=== PATIENT | male | born 2000 | race Caucasian/White ===

== ENCOUNTER 2024-12-08 18:26 | Emergency (ER) | payer OTHER, SELFPAY ==
[2024-12-08 18:32] VITALS: BP 142/71; PULSE 96; RESP 16; TEMP 36.8; O2SAT 95
--- OUTSIDE RECORDS SUMMARY | 2024-12-08 18:33 | XMS_ITS | Clinical Summary ---
Author Organization [employer] [facility] Address [address] [place] [address] Care Team Providers Care Literature Teacher Name Role Phone Silvia Phi Richie VILLAGOMEZ Primary Care Provider [phone] Allergies No known active allergies Medications No known medications Active Problems No known active problems Family History Medical History Relation Name Comments Healthy Brother Hypertension Father Unknown Maternal Grandfather Cancer Maternal Grandmother Healthy Mother Other Paternal Grandfather ALS No Known Problems Paternal Grandmother Relation Name Status Comments Brother Alive Father Alive Maternal Grandfather Alive Maternal Grandmother Alive Mother Alive Paternal Grandfather Paternal Grandmother Alive Sister none Social History Tobacco Use Types Packs/Day Years Used Date Smoking Tobacco: Never Smokeless Tobacco: Never Tobacco Cessation:Counseling Given: Yes Alcohol Use Standard Drinks/Week Comments Yes 0 (1 standard drink = 0.6 oz pur e alcohol) Sex and Gender Information Value Date Recorded Sex Assigned at Not on file Legal Sex Male 11:25 AM CDT Gender Identity Not on file Sexual Orientation Not on file Last Filed Vital Signs Vital Sign Reading Time Taken Comments Blood Pressure 130/60 10/21/2020 3:50 PM CDT Pulse 69 10/21/2020 3:50 PM CDT Temperature 36.8 C (98.2 F) 01/19/2020 2:14 PM [employer] Respiratory Rate 18 01/02/2020 11:07 AM CDT Oxygen Saturation 99% 10/21/2020 3:50 PM CDT Inhaled Oxygen Concentration - - Weight 86.9 kg (191 lb 9.6 oz) 10/21/2020 3:50 P M CDT Height 175.3 cm (5' 9 ) 10/21/2020 3:50 PM CDT Body Mass Index 28.29 10/21/2020 3:50 PM CDT Plan of Treatment Health Maintenance Due Date Last Done Comments HPV VACCINES (1 - Male 3-dose series) 2013 DTAP/TDAP/TD VACCINES (1 - Tdap) 2017 HEPATITIS B VACCINES (1 of 3 - 19+ 3-dose series) 07/10 INFLUENZA VACCINE (#1) 2024 Insurance Care Teams Literature Teacher Relationship Specialty Start Date End Date Phi Vega DO [address] [place] [id number] PCP - General Family Practice 01/18/22
--- OUTSIDE RECORDS SUMMARY | 2024-12-08 18:33 | XMS_ITS | Data Portability ---
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 Use cool compress, may use OTC hydorcortisone sparingly on face, may use benadryl as needed. tolerated IM injection well. F/U PRN with walk-in clinic for sx that worsen or do not improve. Patient verbalizes understanding and agreement with this plan of care. Will call with any questions or concerns. [email or web address] Not available 08/20/2022 15:46:11 10/31/2022 10/31/2022 normal penis and testicles on exam. no scrotal mass that i could identify on exam. Not available 10/31/2022 09:04:11 04/24/2024 04/24/2024 he has been filtering the urine and there is no sediment passed. he has been drinking 3 quarts of water per day. that is routine for him. sometimes a little more. he takes a pre workout supplement and no other supplemnt. [email or web address] Not available 04/24/2024 08:35:16 Plan of Treatment Reminders Order Date Submit Date Provider Last Modified By Organization Details Last Modified Time Details Appointments None recorded. Lab urinalysis, dipstick 2024 025 [email or web address] [facility] ([facility]), [address] [place] [address], [address], 5 12:19:09 culture, urine 2024 025 [facility], [address] [place] [address] [address], [address], [place], [address], 5 19:55:22 CT + NG RNA, PCR, unspecified specimen 2024 025 [facility], [address] [place] [address] 248, [address], [place], [address], 5 10:18:53 trichomonas vaginalis RNA 2024 025 [facility], [address] [place] [address] 248, [address], [place], [address], 5 10:18:54 urinalysis, complete 2022 023 [facility] ([facility]), [address] [place], [address], 3 09:57:02 Referral urologist referral 2024 025 [email or web address] 4 [facility], [address], [place], [address], 5 12:03:43 urologist referral 2022 023 [email or web address] 2 Not available 3 19:39:54 Procedures None recorded. Surgeries None recorded. Imaging US, kidney 2024 025 [email or web address] [facility] ([facility]), [address] [place], [address], 5 13:47:56 US, kidney - [id number] 2022 023 [facility] ([facility]), [address] [place], [address], 3 13:58:51 Medication Orders triamcinolo ne acetonide 0.1 % topical ointment 2022 023 [email or web address] 5 [facility], [address], [place], [address], 3 08:25:07 betamethaso ne acetate and sodium phos 6 mg/mL suspension for injection 2022 023 [email or web address] 5 Not available 3 08:25:02 Patient TargetsNo targets recorded. Patient InstructionsNo instructions recorded. Reason for Referral Urologist Referral for Nacho hematuria Referring Physician: Og Salazar [facility], Encounter Date: 10/31/2022 Urologist Referral for Nacho hematuria Referring Physician: Og Salazar [facility], Encounter Date: 04/24/2024 Results Created Date Observation Date Name Description Value Unit Range Abnormal Flag Note LastModifiedBy Organization Detail LastModifiedTime 11/01/1910/31/2022 CBC WBC 5.7 x10 4.5-10 .5 Not Available [facility] [address], [address], 10/31/2022 09:41:55 11/01/19 23 10/31/2022 CBC RBC 4.93 x10 4.30-5 .90 Not Available [facility] [address]05 [facility] 1, [place], [address], 10/31/2022 09:41:55 11/01/19 23 10/31/2022 CBC HGB 15.6 g/dL 13.5-1 8.0 Not Available [facility] [address], [address], 10/31/2022 09:41:55 11/01/19 23 10/31/2022 CBC HCT 44.7 % 35.0-6 0.0 Not Available [facility] [address], [place], [address], 10/31/2022 09:41:55 11/01/19 23 10/31/2022 CBC MCV 90.6 fL 80.0-9 9.9 Not Available [facility] [address], [place], [address], 10/31/2022 09:41:55 11/01/19 23 10/31/2022 CBC MCH 31.7 pg 27.0-3 2.0 Not Available [facility] [address], [place], [address], 10/31/2022 09:41:55 11/01/19 23 10/31/2022 CBC MCHC 34.9 g/dL 32.0-3 6.0 Not Available [facility] [address] [facility] 1, [place], [address], 10/31/2022 09:41:55 11/01/19 23 10/31/2022 CBC RDW 13.3 % 11.5-1 4.5 Not Available [facility] [address] [facility] 1, [place], [address], 10/31/2022 09:41:55 11/01/19 23 10/31/2022 CBC plt 234.1 x10 150.0- 451.0 Not Available [facility] [address] [facility] 1, [place], [address], 10/31/2022 09:41:55 11/01/19 23 10/31/2022 CBC lymphocytes % 27.3 % 20.0-5 0.0 Not Available [facility] [address], [place], [address], 10/31/2022 09:41:55 11/01/19 23 10/31/2022 CBC granulcytes % 56.0 % 30.0-7 0.0 Not Available [facility] [address] [facility] 1, [place], [address], 10/31/2022 09:41:55 11/01/19 23 10/31/2022 CBC monocytes % 13.0 % 2.0-10 .0 high Not Available [facility] [address] [facility], [place], [address], 10/31/2022 09:41:55 11/01/19 23 10/31/2022 CBC granulcytes# 3.2 x10 Not Di ilable [facility] [address] [facility], [place], [address], 10/31/2022 09:41:55 11/01/19 23 10/31/2022 CBC lymphocytes # 1.5 x10 Not Available [facility] [address] [place] [address] [facility], [place], [address], 10/31/2022 09:41:55 11/01/19 23 10/31/2022 CBC monocytes # 0.7 x10 Not Avai lable [facility] [address] [place] [address] [address], [place], [address], 10/31/2022 09:41:55 11/01/19 23 10/31/2022 CMP (MALE ) glucose 98.0 mg/dL 60.0-9 9.0 Not Available [facility] [address] [place] [address] [facility], [place], [address], 10/31/2022 10:36:57 11/01/19 23 10/31/2022 CMP (MALE ) BUN (blood urea nitrogen) 18.0 mg/dL 10.0-2 6.0 Not Available [facility] [facility], [place], [address], 10/31/2022 10:36:57 11/01/19 23 10/31/2022 CMP (MALE ) creatinine (serum) 1.2 mg/dL 0.4-1. 5 Not Available [facility] [address] [place] [facility], [place], [address], 10/31/2022 10:36:57 11/01/19 23 10/31/2022 CMP (MALE ) BUN/creatini ne ratio 15.00 ratio Not Available [facility] [address] [facility] 1, [place], [address], 10/31/2022 10:36:57 11/01/19 23 10/31/2022 CMP (MALE ) eGFR calculated 79.1 Not Available [facility] [address]05 [facility] 1, [place], [address], 10/31/2022 10:36:57 11/01/19 23 10/31/2022 CMP (MALE ) total protein 8.3 g/dL 6.0-8. 5 Not Available [facility] [address] [facility] 1, [place], [address], 10/31/2022 10:36:57 11/01/19 23 10/31/2022 CMP (MALE ) total bilirubin 0.9 mg/dL 0.2-1. 3 Not Available [facility] [address] [facility] 1, [place], [address], 10/31/2022 10:36:57 11/01/19 23 10/31/2022 CMP (MALE ) albumin 5.1 g/dL 3.5-5. 5 Not Available [facility] [address] [facility] 1, [place], [address], 10/31/2022 10:36:57 11/01/19 23 10/31/2022 CMP (MALE ) globulin 3.[address] [facility] [address] [place] [address] [facility] 1, [place], [address], 10/31/2022 10:36:57 11/01/19 23 10/31/2022 CMP (MALE ) AST (SGOT) 33.0 U/L 0.0-46 .0 Not Available [facility] [address] [place] [facility], [place], [address], 10/31/2022 10:36:57 11/01/19 23 10/31/2022 CMP (MALE ) altv (SGPT) 25.0 U/L 13.0-6 9.0 normal Not Available [facility] [address] [place] [facility], [place], [address], 10/31/2022 10:36:57 11/01/19 23 10/31/2022 CMP (MALE ) A/G ratio 1.6 ratio Not Available [facility] [address] [place] [facility], [place], [address], 10/31/2022 10:36:57 11/01/19 23 10/31/2022 CMP (MALE ) ALP phos 72.0 U/L 30.0-1 40.0 normal Not Available [facility] [address] [place] [facility], [place], [address], 10/31/2022 10:36:57 11/01/19 23 10/31/2022 CMP (MALE ) calcium 9.4 mg/dL 8.4-10 .5 Not Available [facility] [address] [place] [facility], [place], [address], 10/31/2022 10:36:57 11/01/19 23 10/31/2022 CMP (MALE ) sodium 141.0 mmol/ L 136.0- 145.0 Not Available [facility] [address] [place] [facility], [place], [address], 10/31/2022 10:36:57 11/01/19 23 10/31/2022 CMP (MALE ) potassium 3.5 mmol/ L 3.5-5. 1 Not Available [facility] [address] [facility] 1, [place], [address], 10/31/2022 10:36:57 11/01/19 23 10/31/2022 CMP (MALE ) chloride 102.0 mmol/ L 98.0-1 10.0 normal Not Available [facility] [address] [facility] 1, [place], [address], 10/31/2022 10:36:57 11/01/19 23 10/31/2022 CMP (MALE ) C02 29.0 mmol/ L 22.0-3 1.0 Not Available [facility] [address] [facility] 1, [place], [address], 10/31/2022 10:36:57 11/01/19 23 10/31/2022 CMP (MALE ) anion gap 10.0 calc Not Available [facility] [address] [facility] 1, [place], [address], 10/31/2022 10:36:57 11/01/19 23 10/31/2022 CMP (MALE ) osmolality 292.9 calc Not Available [facility] [address] [facility] 1, [place], [address], 10/31/2022 10:36:57 11/01/19 23 10/31/2022 urina lysis , compl ete color yellow Not Available [facility] ([facility]) [address] [place] [address], [address], 10/31/2022 08:48:56 11/01/19 23 10/31/2022 urina lysis , compl ete clarity clear clear normal Not Available [facility]) [address] [place], [address], 10/31/2022 08:48:56 11/01/19 23 10/31/2022 urina lysis , compl ete glucose negati ve negati ve normal Not Available [facility] ([facility]) [address] [place], [address], 10/31/2022 08:48:56 11/01/19 23 10/31/2022 urina lysis , compl ete bilirubin negati ve negati ve normal Not Available [facility] ([facility]) [address] [place], [address], 10/31/2022 08:48:56 11/01/19 23 10/31/2022 urina lysis , compl ete ketones negati ve negati ve normal Not Available [facility] ([facility]) [address] [place], [address], 10/31/2022 08:48:56 11/01/19 23 10/31/2022 urina lysis , compl ete specific gravity 1.030 1.005- 1.025 abnormal Not Available [facility] ([facility]) [address] [place], [address], 10/31/2022 08:48:56 11/01/19 23 10/31/2022 urina lysis , compl ete pH 6.0 5.0-7. 0 normal Not Available [facility] ([facility]) [address] [place], [address], 10/31/2022 08:48:56 11/01/19 23 10/31/2022 urina lysis , compl ete protein trace Not Available [facility] ([facility]) [address] [place], [address], 10/31/2022 08:48:56 11/01/19 23 10/31/2022 urina lysis , compl ete uro 0.2 Not Available [facility] ([facility]) [address] [place], [address], 10/31/2022 08:48:56 11/01/19 23 10/31/2022 urina lysis , compl ete nitrate negati ve negati ve normal Not Available [facility] ([facility]) [address] [place], [address], 10/31/2022 08:48:56 11/01/19 23 10/31/2022 urina lysis , compl ete blood negati ve negati ve normal Not Available [facility] ([facility]) [address] [place], [address], 10/31/2022 08:48:56 11/01/19 23 10/31/2022 urina lysis , compl ete leukocytes negati ve negati ve normal Not Available [facility] ([facility]) [address] [place], [address], 10/31/2022 08:48:56 11/01/19 23 10/31/2022 urina lysis , compl ete WBC 3-4 0 abnormal Not Available [facility] ([facility]) [address] [place], [address], 10/31/2022 08:48:56 11/01/19 23 10/31/2022 urina lysis , compl ete RBC 1-2 0 abnormal Not Available [facility] ([facility]) [address] [place], [address], 10/31/2022 08:48:56 11/01/19 23 10/31/2022 urina lysis , compl ete epi cells 2-3 0 Not Available [facility] ([facility]) [address] [place], [address], 10/31/2022 08:48:56 11/01/19 23 10/31/2022 urina lysis , compl ete bacteria trace mixed patti Not Available [facility] ([facility]) [address] [place], [address], 10/31/2022 08:48:56 11/01/19 23 10/31/2022 urina lysis , compl ete other trace mucus thread s Not Available [facility] ([facility]) [address] [place], [address], 10/31/2022 08:48:56 11/02/19 23 11/02/2022 CULTU RE, URINE , ROUTI NE culture, urine, routine SEE NOTE CULTU RE, URINE , ROUTI NE Micro Numbe r: [id number] Test Statu s: Final Speci men Sourc e: Urine Speci men Quali ty: Adequ ate Resul t: Less than 10,00 0 CFU/m L of singl e Gram posit cali organ ism isola devan. No furth er testi ng will be perfo rmed. If clini john indic ated, recol lecti on using a metho d to minim ize conta minat ion, with promp t trans héctor to Urine Cultu re Trans port Tube, is recom diann d. Not Available [address] [address] [place], [address], 11/03/2022 00:21:28 04/23/19 25 04/24/2024 CULTU RE, URINE , ROUTI NE culture, urine, routine SEE NOTE CULTU RE, URINE , ROUTI NE Micro Numbe r: [id number] Test Statu s: Final Speci men Sourc e: Urine , clean catch Speci men Quali ty: Adequ ate Resul t: No Growt h Not Available [facility] [address] [place], [address], 04/24/2024 19:55:22 04/23/19 25 04/23/2024 urina lysis , dipst ick Leukocytes Negati ve Not Available [facility] ([facility]) [address] [place], [address], 04/23/2024 11:48:46 04/23/19 25 04/23/2024 urina lysis , dipst ick Nitrite negati ve Not Available [facility] ([facility]) [address] [place], [address], 04/23/2024 11:48:46 04/23/19 25 04/23/2024 urina lysis , dipst ick Urobilinogen .2 Not Available [facility] ([facility]) [address] [place], [address], 04/23/2024 11:48:46 04/23/19 25 04/23/2024 urina lysis , dipst ick Protein Negati ve Not Available [facility] ([facility]) [address] [place], [address], 04/23/2024 11:48:46 04/23/19 25 04/23/2024 urina lysis , dipst ick pH 7.5 Not Available [facility] ([facility]) [address] [place], [address], 04/23/2024 11:48:46 04/23/19 25 04/23/2024 urina lysis , dipst ick Blood Negati ve Not Available [facility] ([facility]) [address] [place], [address], 04/23/2024 11:48:46 04/23/19 25 04/23/2024 urina lysis , dipst ick Specific Cutler 1.020 Not Available [facility] ( [facility]) [address] [place], [address], 04/23/2024 11:48:46 04/23/19 25 04/23/2024 urina lysis , dipst ick Ketone Negati ve Not Available [facility] ([facility]) [address] [place], [address], 04/23/2024 11:48:46 04/23/19 25 04/23/2024 urina lysis , dipst ick Bilirubin Negati ve Not Available [facility] ([facility]) [address] [place], [address], 04/23/2024 11:48:46 04/23/19 25 04/23/2024 urina lysis , dipst ick Glucose Negati ve Not Available [facility] ([facility]) [address] [place], [address], 04/23/2024 11:48:46 04/23/19 25 04/23/2024 urina lysis , dipst ick Appearance Clear Not Available [facility] ([facility]) [address] [place], [address], 04/23/2024 11:48:46 04/23/19 25 04/23/2024 urina lysis , dipst ick Color Yellow Not Available [facility] ([facility]) [address] [place], [address], 04/23/2024 11:48:46 12/13/19 23 12/11/2022 US, surinder y No observ ation record ed. [email or web address] [facility] [address] [place], [address], 12/14/2022 12:01:56 Result Notes None recorded. Problems Name Problem SNOMED Code Status Onset Date Resolution Date Notes Provider Name and Address Organization Details Recorded Time Asthma 598169128 Completed 201805/13/2018 no problems as an adult. Had a collapsed lung d/t his asthma at age 4 GRICELDA swann [facility], L.L[facility] 3 08:28:02 Asthma 912522911 Active 2018 childhood. Caused collapsed lung at age 4 GRICELDA swann [facility], Nicko 3 08:28:02 Problem Notes None recorded. Medical Equipment None Reported. Allergies No known drug allergies Medications Name Sig Start Date Stop Date Status Note LastModified by Organization Details LastModified Time prednisone 20 mg tablet TAKE 2 TABLETS BY MOUTH ONCE DAILY .BEGIN 11/10 IF NEEDED 10/31 completed Not Available Not Available Not Available betamethaso ne acetate and sodium phos 6 mg/mL suspension for injection Take 1 mL every day by injection route for 1 day. 10/31 completed Not Available Not Available Not Available triamcinolo ne acetonide 0.1 % topical ointment APPLY A THIN LAYER TOPICALLY TO THE AFFECTED AREA(S) TWICE DAILY 10/31 completed Not Available Not Available Not Available magnesium 400 mg (as magnesium oxide) capsule Take 1 capsule every day by oral route. 04/23 completed Not Available Not Available Not Available Vitals Date Recorded Body height Body mass index (BMI) Body weight Oxygen saturation Oxygen saturation in Arterial blood by Pulse oximetry Heart rate Respiratory rate Body temperature Systolic And Diastolic Provider Name and Address Organization Details Last Updated DateTime 5 172.72 cm 32.7 kg/m2 56257.3 6 g 97 % 97 % 88 /min 18 /min 98.2 [degF] 166/110 mm[Hg] Mally Todd [facility], L.LMike[facility] 5 11:52:25 Date Recorded Body height Body mass index (BMI) Body weight Body temperature Heart rate Oxygen saturation Oxygen saturation in Arterial blood by Pulse oximetry Systolic And Diastolic Provider Name and Address Organization Details Last Updated DateTime 5 172.72 cm 32.7 kg/m2 85254.3 6 g 98.2 [degF] 79 /min 99 % 99 % 142/82 mm[Hg] GRICELDA MARIE [facility], L.LЮлия 5 08:17:43 Date Recorded Respiratory rate Body weight Body mass index (BMI) Body height Body temperature Heart rate Oxygen saturation Oxygen saturation in Arterial blood by Pulse oximetry Systolic And Diastolic Provider Name and Address Organization Details Last Updated DateTime 3 18 /min 52332.0 3 g 31.3 kg/m2 172.72 cm 98.8 [degF] 68 /min 100 % 100 % 126/80 mm[Hg] MARITZA YEPEZ [facility] L.L.CMike 3 15:05:06 Date Recorded Body height Body mass index (BMI) Body weight Body temperature Heart rate Oxygen saturation Oxygen saturation in Arterial blood by Pulse oximetry Systolic And Diastolic Provider Name and Address Organization Details Last Updated DateTime 3 172.72 cm 31.8 kg/m2 52755.8 1 g 97.1 [degF] 70 /min 100 % 100 % 136/62 mm[Hg] GRICELDA MARIE [facility] L.L.CMike 3 08:23:50 Social History None recorded. Functional Status Question Answer Note LastModified by Organizat ion Details LastModified Time Do you use any illicit or recreational drugs? No [email or web address] Information not available 10/31/2022 Do you or have you ever used any other forms of tobacco or nicotine? No [email or web address] Information not available 04/24/2024 What is your level of alcohol consumption? Occasional [email or web address] Information not available 10/31/2022 Are you currently employed? Yes [email or web address] Information not available 10/31/2022 Do you or have you ever used any nicotine-free cigarettes, vape, or chewing tobacco? No [email or web address] Information not available 04/24/2024 Mental Status None recorded. Family History Relationship Description Onset Age of this Age Resolved Age Notes LastModified by Organization Details LastModified Time Father Essential hypertension [email or web address] Not available 08:28:28 Maternal Grandfather Malignant tumor of testis [email or web address] Not available 10/31 08:28:44 Medical History No medical history recorded. Immunizations Vaccine Type Date Status Note Provider Nam e and Address Organization Details Recorded Time IPV 4 completed GRICELDA MARIE [facility], L.L[facility]ия 10/31/2022 08:24:38 IPV 2 completed GRICELDA MARIE null, [facility] 10/31/2022 08:24:38 IPV 9 completed GRICELDA MARIE null, [facility] 10/31/2022 08:24:38 IPV 9 completed GRICELDAMARSHA MARIE null, [facility] 10/31/2022 08:24:38 MMR 4 completed GRICELDA MARIE null, [facility] 10/31/2022 08:24:38 MMR 2 completed GRICELDA MARIE null, [facility] 10/31/2022 08:24:38 COVID-19, mRNA, LNP-S, PF, 100 mcg/0.5mL dose or 50 mcg/0.25mL dose 2 completed GRICELDA MARIE null, [facility] 10/31/2022 08:24:38 COVID-19, mRNA, LNP-S, PF, 100 mcg/0.5mL dose or 50 mcg/0.25mL dose 2 completed GRICELDA MARIE null, [facility] 10/31/2022 08:24:38 Tdap 2 completed GRICELDA MARIE null, [facility] 10/31/2022 08:24:38 varicella 4 completed GRICELDA MARIE null, [facility] 10/31/2022 08:24:38 Hep B, unspecified formulation 0 completed GRICELDAMARSHA MARIE null, [facility] 10/31/2022 08:24:38 Hep B, unspecified formulation 9 completed GRICELDA MARIE null, [facility] 10/31/2022 08:24:38 Hep B, unspecified formulation 9 completed GRICELDA MARIE null, [facility] 10/31/2022 08:24:38 Hib (PRP-T) 0 completed GRICELDA MARIE null, [facility] 10/31/2022 08:24:38 Hib (PRP-T) 2 completed GRICELDA MARIE null, [facility] 10/31/2022 08:24:38 Hib (PRP-T) 9 completed GRICELDA MARIE null, [facility] 10/31/2022 08:24:38 Hib (PRP-T) 9 completed GRICELDA MARIE null, [facility] 10/31/2022 08:24:38 meningococcal MCV4P 6 completed GRICELDA MARIE null, [facility] 10/31/2022 08:24:38 DTaP 0 completed GRICELDA MARIE null, [facility] 10/31/2022 08:24:38 DTaP 4 completed GRICELDA MARIE null, [facility] 10/31/2022 08:24:38 DTaP 2 completed GRICELDA MARIE null, [facility] 10/31/2022 08:24:38 DTaP 9 completed GRICELDA MARIE null, [facility] 10/31/2022 08:24:38 DTaP 9 completed GRICELDA MARIE null, [facility] 10/31/2022 08:24:38 Tdap 2 completed Not Available [facility] 12/11/2022 16:50:16 Past Encounters Encounter ID Performer Location Encounter Start Date Encounter Closed Date Diagnosis/Indication Diagnosis SNOMED-CT Code Diagnosis ICD10 Code Diagnosis IMO Codes Diagnosis Note [id number] ADAM L[employer]ER [employer] [facility] ([facility]) [address] [place] [phone] 08/20/2022 14:15:49 08/20/2022 15:49:48 Contact dermatitis caused by urushiol from [facility] 318893038 L24.7 [id number] Og Salazar MD [facility] ([facility]) [address] [place] [phone] 10/31/2022 08:11:02 10/31/2022 09:15:57 Nacho hematuria 969131256 R31.0 he stays very well hydrated. he keeps water with him at all times he drank 7+ liters yesterday. 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 no blood in the ejaculate. his issue is bright red and maybe clotted so less likely rhabdo etc. [id number] Og Salazar MD [facility] ([facility]) [address] [place] [phone] 12/11/2022 16:50:08 12/11/2022 18:58:10 [id number] MAGDALENO MEDINA [facility] ([facility]) [address] [place] [address] [phone] 04/23/2024 11:43:24 04/23/2024 12:44:55 Dysuria [id number] R30.0 Discussed with patient need for testing. Advised to follow up with PCP Dr Salazar to discuss need for US with or without active symptoms. [id number] Og Salazar MD [facility] ([facility]) [address] [place] [address] [phone] 04/24/2024 08:02:07 04/24/2024 08:40:06 Nacho hematuria [id number] R31.0 he stays very well hydrated. he keeps water with him at all times he drank 7+ liters yesterday. 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 no blood in the ejaculate. his issue is bright red and maybe clotted so less likely rhabdo etc. Health Concerns Section Related Observation LastModified by Organization Detai ls LastModified Time None Recorded Concern Status LastModified by Organization Details LastModified Time None Recorded Advance Directives Directive None Recorded Payers Insurance Date Sequence Insurance Name Policy Number Policy Jacobsen Covered Member ID Jacobsen Member ID Guarantor Name 04/24/2024 2 *SELF PAY* Kasey Osborn 06/07/2024 1 [employer] [id number] Victor Hugo Osborn [id number] Victor Hugo Osborn Notes Date Note Type Note Provider Name and Address Organization Details Recorded Time 3 text/html Rash/Skin LesionReported by PatientHPIFor quality, patient reportsitchybut reportsnot painful. For location, patient reportswhole body. For severity, patient reportsmoderate. For duration, patient [id number] days. For alleviating factors, patient reportsnone. For associated symptoms, patient reportsno fever. For prior treatments, patient reportsotc topical treatmentandother treatment bleach bath.ROS as noted in the HPI Patient states he's had poison anisa for about 10 days. He's tried everything he knows to do to get rid of it including calamine and bleach baths. It's not going away. Itches but no pain. ADAM LINDER, [facility] [address] [place] [address], [phone], [facility], [place]o 08/20/2022 15:47:32 3 text/html HematuriaReported by PatientHPIFor quality, patient reportscolor red. For severity, patient reportspain 4/10(when the pain happens it averages a 4, the most pain he would have is a 7). For duration, patient reportsintermittent. For associated symptoms, patient reportsno abdominal pain,no back pain, andno dribbling.patient had seen a doctor in [place] where he was living for this condition. Pt reports this has been happening on/off for 3 years. The previous doctor thought that pt probably gets kidney stones. When this happens to patient, he will have a pressure sensation in his penis and then pass a very small amount of blood and then have pain for about 12 hours. Then the pain disappears. Typically this will happen once every 4-6 months.ROS as noted in the HPI the last episode was 3 weeks ago. it is only uncomfortable in his penis only with dysuria but with no abdominal pain flank pain back pain etc. it occurs once every 4-6 months. the stream continues to be normal when this happens. it will be a tiny amount of blood like a small clot. Og Salazar MD [address] [place], [phone], [facility] 10/31/2022 09:08:26 5 text/html Lower Urinary Tract Symptoms (LUTS)Reported by PatientROS as noted in the HPI walk in patientpatient is here today for blood in his urine and bladder pressure, patient never got his kidney US done back from 2022. Patient said that his problems all went away and then yesterday he had blood in his urine. Hx of kidney stones per history. MAGDALENO MEDINA [address] [place], [phone], [facility] 04/23/2024 12:21:06 5 text/html Lower Urinary Tract Symptoms (LUTS)Reported by PatientHPIFor associated symptoms, patient reportsabdominal pain (lower abdomen)andgross hematuriabut reportsno groin pain,no flank pain,no chills,no fever, andno frequency. For quality, patient reportspressure. For severity, patient reportsimproving. For onset/timing, patient reportsspontaneous(will happen for 1 episode every 4 months. he will only see blood once, but the pressure will remain for several days). For duration, patient reports> 1 year. For context, patient reportsultrasound (results were negative). For alleviating factors, (blood and pain just go away on their own).1 day f/u from the walk in clinic.his urinalysis was neg. for blood.ROS as noted in the HPI he had some dysuria before and after passing the blood. he still has some lower pelvic pain.there has been no splitting or change in the stream. no discharge fever or chills. the penis is normal without any sores or inflammation. he had a little dysuria as he passed the blood but really his pain is in the suprapubic area.was advised to have imaging and urologist consultation in the late summer. we discussed benefits of doing so and risks of not and he confirms he is aware of these. he did not follow through at that time.no fever or chills Og Salazar MD [address] [place] [address], [phone], [facility], [place] 04/24/2024 08:37:51
--- OUTSIDE RECORDS SUMMARY | 2024-12-08 18:33 | XMS_ITS | Patient Health Record ---
Author Organization [facility], [facility] Address [address] [place] [address] Care Team Providers Care Respiratory Medicine Physician Name Role Phone Familia Durham MD Primary Care Provider Unavailabl e CAREY CAMPBELL Unavailable [phone] CHRISTINE JIMENEZ Unavailable [phone] KATE MONTGOMERY Unavailable [phone] Allergies No Known Allergies Results Component Value Reference Range Notes Urinalysis, Routine Reviewed date:05/09/2024 10:16:28 AM Interpretation: Performing Lab: Notes/Report: Urine-Color yellow Appearance clear Glucose - Bilirubin - Ketones - Specific Dilley 1.010 Occult Blood - pH 8.5 Urine Protein - Urobilinogen,Semi-Qn - Nitrite, Urine - WBC Esterase - Gx - Recurrent Persistent Co mplicated UTI Reviewed date:05/12/2024 08:54:11 AM Interpretation: Performing Lab:, [id number] Notes/Report: PatientName: : Gender: PatientRelation: PatientAddress: , , , InsuranceName: InsuranceCode: Test Result: Guidance 7.0, Voided Urine, UTI Surgical, Test Result: PATHOGENIC DNA DETECTED#A*F UTIAbnormalFlag: Guidance 7.0, Voided Urine, UTI Surgical, UTIAbnormalFlag: A Urinalysis, Routine Reviewed date:05/19/2024 04:13:58 PM Interpretation: Performing Lab: Notes/Report: Urine-Color yellow Appearance clear Glucose - Bilirubin - Ketones - Specific Dilley 1.010 Occult Blood - pH 6.0 Urine Protein - Urobilinogen,Semi-Qn - Nitrite, Urine - WBC Esterase - Urinalysis Gross Exam - Reason For Referral No Information Medications Medication SIG (Take, Route, Frequency, Duration) Notes Start Date End Date Status diazePAM 5 MG 1 tablet as needed Orally Once a day; Duration: 1 days As needed prior to procedure (30-45min prior) 05/09/2024 Active Problems Problem Type SNOMED Code ICD Code Onset Dates Problem Status W/U Status Risk Notes Problem Lower urinary tract symptoms due to benign prostatic hypertrophy (50998094707395 ) Benign prostatic hyperplasia with lower urinary tract symptoms (N40.1) Active confirmed Problem Benign prostatic hyperplasia (925651943) BPH (benign prostatic hyperplasia) (N40.0) Active confirmed Problem Nacho hematuria (561385497) Intermittent gross hematuria (R31.0) Active confirmed Problem Anxiety about health (838812514) Anxiety about health (F41.8) Active confirmed Vital Signs Heart Rate 70 /min 05/09/2024 Height-cm 172.72 cm 05/19/2024 Blood pressure diastolic 81 mm Hg 05/09/2024 Weight-kg 92.53 kg 05/19/2024 Height 68 in 05/19/2024 Blood pressure systolic 135 mm Hg 05/09/2024 Weight 204 lbs 05/19/2024 BMI 31.01 kg/m2 05/19/2024 Procedures Procedure Date Ordered Date Performed Result Body Sit e Bladder Scan 05/09/2024 05/09/2024 N/A Encounters Encounter Location Date Provider Diagnosis [facility], [facility] [address] [phone] 05/09/2024 CAREY CAMPBELL Intermittent gross hematuria R31.0 ; Lower abdominal pain R10.30 and Anxiety about health F41.8 [facility], [facility] [address] [place] [address] 05/19/2024 KATE MONTGOMERY Intermittent gross hematuria R31.0 ; Lower abdominal pain R10.30 ; Anxiety about health F41.8 and BPH (benign prostatic hyperplasia) N40.0 [facility], [facility] [address] [place] [address] 05/01/2024 CHRISTINE JIMENEZ [facility], [facility] [address] [address] 05/12/2024 CAREY CAMPBELL [facility], [facility] [address] [place] [address] 05/12/2024 CAREY CAMPBELL [facility], [facility] [address] [place] [address] 05/16/2024 CAREY CAMPBELL Assessments Encounter Date Diagnosis (ICD Code) Assessment Notes Treatment Notes Treatment Clinical Notes Section Notes 05/09/2024 Intermittent gross hematuria (ICD-10 - R31.0) 05/09/2024 Lower abdominal pain (ICD-10 - R10.30) 05/19/2024 Intermittent gross hematuria (ICD-10 - R31.0) 23 yo male with intermittent gross hematuria. Cysto shows short bilobar obstructing prostate, no urethral stricture. Cysto findings reviewed. No further intervention needed. plan: -RTC in 1yr UA,PVR and see Carey Campbell APRN 05/19/2024 Lower abdominal pain (ICD-10 - R10.30) 23 yo male with intermittent gross hematuria. Cysto shows short bilobar obstructing prostate, no urethral stricture. Cysto findings reviewed. No further intervention needed. plan: -RTC in 1yr UA,PVR and see Carey Campbell APRN 05/19/2024 Anxiety about health (ICD-10 - F41.8) 23 yo male with intermittent gross hematuria. Cysto shows short bilobar obstructing prostate, no urethral stricture. Cysto findings reviewed. No further intervention needed. plan: -RTC in 1yr UA,PVR and see Carey Campbell APRN 05/09/2024 Anxiety about health (ICD-10 - F41.8) 05/19/2024 BPH (benign prostatic hyperplasia) (ICD-10 - N40.0) 23 yo male with intermittent gross hematuria. Cysto shows short bilobar obstructing prostate, no urethral stricture. Cysto findings reviewed. No further intervention needed. plan: -RTC in 1yr UA,PVR and see Carey Campbell APRN 05/09/2024 Other UA with increased pH. Send for PCR, call with results and treat as indicated. Suspect possible urethral stricture causing intermittent hematuria. He would like to proceed with cystoscopy for further evaluation. He will RTC for cystoscopy. All questions that were asked were answered. Patient satisifed with plan of care. Plan Of Treatment Next Appt Details Provider Name:CAREY CAMPBELL, Keny 05/25/2025 04:00:00 PM, [address] [place], [phone], Insurance Providers Payer Name Payer Address Payer Phone Subscriber Number Group Number Insured Name Patient Relationship to Insured Coverage Start Date Coverage End Date Hollis CALLES [address] BARI VASQUEZ [id number] [phone] [id number] Kate Osborn Self - patient is the insured Medical (General) History Medical History History ICD Code abdominal / flank pain blood in urine Surgical History Surgery Date(Month/Year) LUNG SURGERY CHILD Hospitalization History Reason Date(Month/Year) collapsed lung in 2003 or 2004
--- OUTSIDE RECORDS SUMMARY | 2024-12-08 18:33 | XMS_ITS | Clinical Summary ---
Author Organization [facility] Address [address] [place] [address] Care Team Providers Care Pocket Builder Name Role Phone Phi Vega Primary Care Provider [phone] Allergies No known active allergies Medications No [...] Date Smoking Tobacco: Never Smokeless Tobacco: Never Alcohol Use Standard Drinks/Week Comments Yes 0 (1 standard drink = 0.6 oz pur e alcohol) Sex and Gender Information Value Date Recorded Sex Assigned at Not on file Legal Sex Male 11:33 AM CDT Gender Identity Not on file Sexual Orientation Not on file Last Filed Vital Signs Vital Sign Reading Time Taken Comments Blood Pressure 128/72 01/19/2020 2:14 PM [employer] Pulse 91 01/19/2020 2:14 PM [employer] Temperature 36.8 C (98.2 F) 01/19/2020 2:14 PM [employer] Respiratory Rate 18 01/02/2020 11:07 AM CDT Oxygen Saturation 99% 01/19/2020 2:14 PM [employer] Inhaled Oxygen Concentration - - Weight 86.2 kg (190 lb) 01/19/2020 2:14 PM [employer] Height 177.8 cm (5' 10 ) 01/19/2020 2:14 PM [employer] Body Mass Index 27.26 01/19/2020 2:14 PM [employer] Plan of Treatment Health Maintenance Due Date Last Done Comments HPV VACCINES (1 - Male 3-dose series) 2013 DTAP/TDAP/TD VACCINES (1 - Tdap) 2017 HEPATITIS B VACCINES (1 of 3 - 19+ 3-dose series) 07/10 INFLUENZA VACCINE (#1) 2024 Insurance [employer] OPEN ACCESS PLUS Care Teams Pocket Builder Relationship Specialty Start Date End Date Phi Vega DO PCP - General Family Practice 01/19/20
--- NOTE | 2024-12-08 20:18 | XRR_ITS ---
PROCEDURE INFORMATION: Exam: XR Right Finger(s) Exam date and time: 12/08/2024 8:21 PM Age: 24 years old Clinical indication: Injury or trauma; Other: Crushed while lifting weights in gym; Crushing; Right; Ring finger and little finger TECHNIQUE: Imaging protocol: Radiologic exam of the right fingers. Views: Minimum 2 views. COMPARISON: No relevant prior studies available. FINDINGS: Bones/joints: Normal. Soft tissues: Soft tissue swelling overlying the distal phalanx of the little finger. Soft tissue defect anteromedial to the D IP joint of the ring finger. XR/XR finger RT min 2V [id number] IMPRESSION: Soft tissue injury.
[2024-12-08] MEDS: oxyCODONE-APAP 5-325 mg Tablet 1 TAB PO (21:01)
[2024-12-08] MEDS: lidocaine-epi 1% 20 mL INJ 5 ML INJECTION (21:01)
[2024-12-08] MEDS: chlorhexidine gluconate 4% Btl 118 mL 1 APPLIC TOPICAL (21:02)
--- NOTE | 2024-12-09 00:10 | ED_ITS ---
HPI - Extremity Problem General: Chief complaint: Extremity Injury, Upper Stated complaint: right cushed pinky and ring fingers Time Seen by Provider: 12/08/24 19:03 History of Present Illness: 24 male with finger injuries sustained w hen a squat bar compressed fingers between the safety and the bar. Reports pain and soreness, able to move affected finger(s). Sensation at fingertip intact. Described tissue extrusion from the pinky ( toothpaste appearance). Provider and patient note no nail bed bleeding. Provider states it does not feel fractured on exam. No report of other systemic symptoms. Focused discussion on wound care, suturing vs secondary intention, pain control, and tetanus status. Patient prioritizes mobility over cosmetics. Related Data Allergies Allergy/AdvReac Type Severity Reaction Status Date / Time No Known Allergies Allergy Verified 12/08/24 18:34 Physical Exam Narrative: EXAM NARRATIVE: Extremities: Finger lacerations including pinky with soft tissue extrusion; another finger with laceration suitable for suturing per provider. No subungual hematoma appreciated. Able to move affected finger(s). Ring finger laceration is jagged and mostly on the pad of the palmar aspect just distal to the DIP joint. Laceration is jagged but wound edges appear viable. No underlying bony abnormality noted. No vascular or tendon involvement. No joint involvement. Neurologic: Light touch sensation intact at fingertip of affected finger(s). Skin: Shearing-type superficial wound noted; provider expects healing without sutures; area to be cleaned thoroughly. Procedures Laceration Laceration 1: Site: hand Side (If applicable): right Size (cm): 2 Description: stellate and irregular Depth: simple, single layer Local Anesthetic: lidocaine 1% and with epi Amount of anesthesia used (mL): 1 Pre-repair: wound explored, irrigated extensively and deep structures intact Skin layer closed with: nylon Size (cm): 5-0 Number of sutures: 5 Technique: simple, interrupted Course Vital Signs: Vital signs: Vital Signs Temperature 98.2 F 12/08/24 18:32 Pulse Rate 96 12/08/24 18:32 Respiratory Rate 16 12/08/24 18:32 Blood Pressure 142/71 12/08/24 18:32 Pulse Oximetry 95 12/08/24 18:32 MDM - Extremity (Nontraumatic) Medical Decision Making Hand was thoroughly cleansed and then laceration on the ring finger was closed using 5-0 nylon suture. Patient we discharged in stable condition with follow- up to primary care in roughly 10 days for suture removal. He shows good underst anding and agrees to plan. X-ray shows no evidence of fracture or dislocation. Lab Data Radiology Impressions Finger X-Ray 12/08/24 20:18 IMPRESSION: Soft tissue injury. All radiology interpretation(s) finalized by discharge Discharge Plan Discharge Patient Disposition: Home Clinical Impression: Finger laceration, Contusion of finger of right hand Condition: Stable Discharge Orders: Discharge ED (Routine); Ordered 12/08/24 Ordered By: Toni Ricci Discharge Diet: Usual diet Discharge Activity: Increase activity as tolerated Patient Instructions: Laceration (ED), Patient Portal & Ludy Instructions Activity Restrictions/Additional Instructions: Please have stitches removed in roughly 10 days. It is safe to use soap and water on the region gently. Nonsutured wounds should heal by secondary intention over the next 2 weeks. Use Tylenol and ibuprofen for pain Print Language: Hong Konger Coding Level of Care Code ED Repair Specialist for Renee Holly
== END 2024-12-08 21:44 | disposition home or self-care (01) ==
PROVIDERS: Emergency Provider Student in an Organized Health Care Education/Training Program
DX: S61.216A Laceration without foreign body of right little finger without damage to nail, initial encounter (principal); S61.214A Laceration without foreign body of right ring finger without damage to nail, initial encounter; S60.051A Contusion of right little finger without damage to nail, initial encounter; W23.0XXA Caught, crushed, jammed, or pinched between moving objects, initial encounter
CPT/HCPCS: 12001; 73140; 99283; J9999